=== PATIENT | female | born 1950 | race Hispanic/Latino ===

== ENCOUNTER 2018-09-29 17:03 | Emergency (ER) | payer MEDICARE ==
[2018-09-29] MEDS ORDERED: Morphine 4 MG/ML VIAL ONE (17:35)
[2018-09-29] MEDS ORDERED: HYDROcodone/Acetaminophen 5/325 mg Tablet ONE (18:19)
== END 2018-09-29 18:15 | disposition home or self-care (01) ==
LOC: MADERS 17:03
DX: G89.29 Other chronic pain (principal); M54.5 Low back pain
CPT/HCPCS: 96372; J2270

== ENCOUNTER 2019-11-07 05:58 | Emergency (ER) | payer MEDICARE ==
[2019-11-07] MEDS ORDERED: Morphine 4 MG/ML VIAL ONE (06:14)
[2019-11-07] MEDS ORDERED: Ketorolac Tromethamine 30 MG/ML VIAL ONE (06:15)
[2019-11-07 06:56] LABS: Hemoglobin 13.4 g/dL (12.0-16.0); Mean Corpuscular HGB CONC 30.8 g/dL (32.0-36.0); Mean Corpuscular Hemoglobin 33.2 pg (27.0-31.0); Mean Corpuscular Volume 107.6 fL (78.0-98.0); Mean Platelet Volume 9.3 fL (7.4-10.4); Platelet Count 401 thou/uL (130-400); RBC Distribution Width 12.3 % (11.5-14.5); Red Blood Cell (RBC) Count 4.03 mill/uL (4.20-5.40); White Blood Cell (WBC) Count 9.9 thou/uL (4.8-10.8)
[2019-11-07 06:57] LABS: Bilirubin Negative (Negative); Blood, Urine Small (Negative); Clarity Clear (Clear); Glucose, Urine (Dipstick) Negative (Negative); Ketone, Urine Negative (Negative); Leukocyte Negative (Negative); Nitrite Negative (Negative); Protein, Urine (Dipstick) Negative (Neg-Trace); Specific Gravity, Urine 1.025 (1.005-1.030); Urobilinogen 0.2 mg/dL (Less than 2); pH, Urine 6.5 (5.0-9.0)
[2019-11-07 07:04] LABS: Bacteria/HPF Rare-Few HPF (None Seen); Mucous/LPF None Seen LPF (<2+); Squamous Epithelial 0-3 HPF (0-3); WBC/HPF 0-3 HPF (0-3)
[2019-11-07 07:06] LABS: #Basophils 0.1 thou/uL (0.0-0.2); #Eosinphils 0.3 thou/uL (0.0-0.7); #Lymphocytes 2.2 thou/uL (1.20-3.40); #Monocytes 0.5 thou/uL (0.11-0.59); #Neutrophils 6.7 thou/uL (1.40-6.50); %Basophils 1.2 % (0.0-1.0); %Eosinophils 2.6 % (0.0-10.0); %Lymphocytes 22.7 % (21.0-51.0); %Monocytes 5.1 % (0.0-10.0); %Neutrophils 68.3 % (42.0-75.0); MDiff Complete? YES; Macrocytosis SLIGHT = 6-15 cells (100X) (0-5/hpf); Platelet Morphology Comment Appears Adequate; Stomatocytes SLIGHT = 2-5 cells (100X) (0-1/hpf)
[2019-11-07 07:13] LABS: ALT (SGPT) 11 U/L (8-55); AST (SGOT) 18 U/L (5-34); Albumin 4.1 g/dL (3.4-4.8); Alkaline Phosphatase 70 U/L (40-110); Anion Gap 12 mmol/L (10-20); BUN (Urea Nitrogen) 23 mg/dL (9.8-20.1); Bilirubin, Total 0.2 mg/dL (0.2-1.2); Calc. Creatinine Clearance 0 mL/min (70-130); Calcium 8.9 mg/dL (7.8-10.44); Carbon Dioxide 28 mmol/L (23-31); Chloride 106 mmol/L (98-107); Estimated GFR-MDRD 84; Globulin 3.2 g/dL (2.4-3.5); Glucose 93 mg/dL (80-115); Lipase 73 U/L (8-78); Potassium 3.3 mmol/L (3.5-5.1); Protein, Total 7.3 g/dL (6.0-8.3); Sodium 143 mmol/L (136-145)
--- NOTE | 2019-11-07 09:08 | CT ---
PRELIMINARY REPORT/[facility]/AFTER HOURS PROCEDURE CT ABDOMEN AND PELVIS WITHOUT INTRAVENOUS CONTRAST: CLINICAL HISTORY: Back pain. TECHNIQUE: Axial computed tomography images of the abdomen and pelvis without intravenous contrast. CONTRAST: None. COMPARISON: None provided. FINDINGS: LUNG BASES: No basilar airspace consolidation or pleural effusion. LIVER: Unremarkable. GALLBLADDER AND BILE DUCTS: Cholecystectomy with CBD dilation. PANCREAS: Unremarkable. SPLEEN: Unremarkable. ADRENAL GLANDS: Unremarkable. KIDNEYS, URETERS, AND BLADDER: Simple cyst right kidney. No hydronephrosis or nephrolithiasis. No ure teral or bladder calculi. STOMACH AND BOWEL: Limited assessment. PERITONEUM: No free fluid. No free air. LYMPH NODES: Limited assessment. REPRODUCTIVE: Unremarkable as visualized. VASCULATURE: No aortic aneurysm. Diffuse calcified aortic plaque. ABDOMINAL WALL AND SOFT TISSUES: Unremarkable. BONES: Severe lumbar facet arthropathy. Mild anterolisthesis of L4 on L5, and possible right-sided L 4 pars defect. Scoliosis. IMPRESSION: 1. Limited study due to paucity of intra-abdominal fat and lack of IV/oral contrast. Patient is cach ectic. There is a simple cyst in the right kidney. The gallbladder is surgically absent. There is e xtreme calcified arteriosclerosis. 2. Severe lumbar facet arthropathy. Mild anterolisthesis of L4 on L5, and possible right-sided L4 pa rs defect. Scoliosis. ELECTRONICALLY SIGNED BY: Bakari Trejo MD Nov 07, 2019 7:20:59 AM CDT This report is intended for review by the ordering physician only, in accordance of law. If you recei ve this report in error, please call [facility] at [phone]. FINAL REPORT EMERGENT AFTER HOURS CT ABDOMEN AND PELVIS WITHOUT IV CONTRAST: 11/07/19 6:23 a.m. FINDINGS: The exam is severely limited, in part because of very little intraabdominal and retroperitoneal fat a nd it is also limited with the lack of IV and oral contrast. Status post cholecystectomy. Evidence fo r a right renal cyst and a possible small fatty mass, such as an angiomyolipoma at the lateral aspect of the right mid kidney. Retroperitoneum is very poorly seen. The possibility of adenopathy certainl y cannot be excluded. Lumbar spine scoliosis. Spondylosis with some grade 1 spondylolisthesis of L4 a nd L5 with multilevel stenosis. Significantly limited exam. Consideration for a non-emergent follow-up study of the abdomen and pelvi s with IV and oral contrast should be considered for further evaluation. CODE T
== END 2019-11-07 07:45 | disposition home or self-care (01) ==
LOC: MADERS 05:58
DX: M54.5 Low back pain (principal); F17.210 Nicotine dependence, cigarettes, uncomplicated
CPT/HCPCS: 74176; 80053; 81003; 81015; 83690; 85025; 96374; 96375; J1885; J2270

== ENCOUNTER 2020-11-22 21:50 | Emergency (ER) | payer MEDICARE ==
[2020-11-22] MEDS ORDERED: Sodium Chloride 0.9% 500 ML ONE (22:21)
[2020-11-22 22:40] LABS: Hemoglobin 14.3 g/dL (12.0-16.0); Mean Corpuscular HGB CONC 31.5 g/dL (32.0-36.0); Mean Corpuscular Hemoglobin 33.6 pg (27.0-31.0); Mean Corpuscular Volume 106.6 fL (78.0-98.0); Mean Platelet Volume 7.2 fL (7.4-10.4); Platelet Count 419 thou/uL (130-400); RBC Distribution Width 13.3 % (11.5-14.5); Red Blood Cell (RBC) Count 4.25 mill/uL (4.20-5.40); White Blood Cell (WBC) Count 14.8 thou/uL (4.8-10.8)
[2020-11-22 22:57] LABS: Bacteria/HPF Rare-Few HPF (None Seen); Squamous Epithelial 0-3 HPF (0-3); WBC/HPF 0-3 HPF (0-3)
[2020-11-22 22:58] LABS: ALT (SGPT) 18 U/L (8-55); AST (SGOT) 16 U/L (5-34); Alkaline Phosphatase 65 U/L (40-110); Anion Gap 14 mmol/L (10-20); BUN (Urea Nitrogen) 12 mg/dL (9.8-20.1); Bilirubin, Total 0.5 mg/dL (0.2-1.2); CK (CPK) 46 U/L (29-168); Calc. Creatinine Clearance 0 mL/min (70-130); Calcium 8.8 mg/dL (7.8-10.44); Carbon Dioxide 22 mmol/L (23-31); Chloride 108 mmol/L (98-107); Globulin 2.9 g/dL (2.4-3.5); Glucose 128 mg/dL (83-110); Lipase 17 U/L (8-78); Potassium 3.6 mmol/L (3.5-5.1); Protein, Total 6.9 g/dL (5.8-8.1); Sodium 140 mmol/L (136-145)
[2020-11-22 22:58] LABS: Mucous/LPF 1+ LPF (<2+)
[2020-11-22 22:59] LABS: #Lymphocytes 0.2 thou/uL (1.20-3.40); #Monocytes 0.2 thou/uL (0.11-0.59); #Neutrophils 14.4 thou/uL (1.40-6.50); %Basophils 0.1 % (0.0-1.0); %Eosinophils 0.1 % (0.0-10.0); %Lymphocytes 1.6 % (21.0-51.0); %Monocytes 1.1 % (0.0-10.0); %Neutrophils 97.2 % (42.0-75.0); Platelet Morphology Comment Appears Adequate; RBC Morphology Normal
[2020-11-23] MEDS ORDERED: Ketorolac Tromethamine 30 MG/ML VIAL ONE (00:07)
== END 2020-11-23 00:25 | disposition home or self-care (01) ==
LOC: MADERS 21:50
DX: R33.9 Retention of urine, unspecified (principal); F17.210 Nicotine dependence, cigarettes, uncomplicated; C71.9 Malignant neoplasm of brain, unspecified; Z79.899 Other long term (current) drug therapy
CPT/HCPCS: 36415; 51701; 74176; 80053; 81015; 82550; 83605; 83690; 85025; 87040; 87086; 93005; 96374; J1885; J7030

== ENCOUNTER 2020-12-19 07:24 | Emergency (ER) | payer MEDICARE ==
[2020-12-19] MEDS ORDERED: Sodium Chloride 0.9% 1,000 ML ONE (08:38)
[2020-12-19] MEDS ORDERED: Ondansetron PF 4 MG/2 ML Vial ONE (08:38)
[2020-12-19 09:41] LABS: Bilirubin Moderate (Negative); Blood, Urine Large (Negative); Clarity Cloudy (Clear); Glucose, Urine (Dipstick) Negative (Negative); Ketone, Urine Trace mg/dL (Negative); Leukocyte Trace (Negative); Nitrite Positive (Negative); Protein, Urine (Dipstick) > or equal to 300 mg/dL (Neg-Trace); Specific Gravity, Urine 1.025 (1.005-1.030)
[2020-12-19 09:50] LABS: RBC/HPF Greater than 50 HPF (0-3); Squamous Epithelial None Seen HPF (0-3)
[2020-12-19 09:51] LABS: Bacteria/HPF 2+ HPF (None Seen); Yeast-Budding 1+ HPF (None Seen); Yeast-Hyphae Rare HPF (None Seen)
[2020-12-19 09:57] LABS: Hemoglobin 15.3 g/dL (12.0-16.0); Mean Corpuscular HGB CONC 31.3 g/dL (32.0-36.0); Mean Corpuscular Hemoglobin 33.9 pg (27.0-31.0); Mean Corpuscular Volume 108.1 fL (78.0-98.0); Mean Platelet Volume 6.7 fL (7.4-10.4); Platelet Count 815 thou/uL (130-400); Red Blood Cell (RBC) Count 4.51 mill/uL (4.20-5.40); White Blood Cell (WBC) Count 30.7 thou/uL (4.8-10.8)
[2020-12-19] MEDS ORDERED: cefTRIAXone\\ROCEPHIN 2 GM VIAL ONE (10:02)
[2020-12-19] MEDS ORDERED: Dextrose 5% in Water 250 ML ONE (10:02)
[2020-12-19] MEDS ORDERED: Sodium Chloride 0.9% 100 ML ONE ×2 (10:02→12:59)
[2020-12-19 10:07] LABS: ALT (SGPT) 39 U/L (8-55); AST (SGOT) 22 U/L (5-34); Albumin 3.3 g/dL (3.4-4.8); Alkaline Phosphatase 73 U/L (40-110); Anion Gap 13 mmol/L (10-20); BUN (Urea Nitrogen) 25 mg/dL (9.8-20.1); Bilirubin, Total 0.8 mg/dL (0.2-1.2); Calc. Creatinine Clearance 0 mL/min (70-130); Calcium 8.7 mg/dL (7.8-10.44); Carbon Dioxide 24 mmol/L (23-31); Chloride 101 mmol/L (98-107); Globulin 2.8 g/dL (2.4-3.5); Glucose 134 mg/dL (83-110); Potassium 3.1 mmol/L (3.5-5.1); Protein, Total 6.1 g/dL (5.8-8.1); Sodium 135 mmol/L (136-145)
[2020-12-19 10:13] LABS: CRP (Inflammatory) 3.95 mg/dL (= or < 0.5)
[2020-12-19 10:24] LABS: Band 2 % (5-11); MDiff Complete? YES; Neutrophil 94 % (42-75)
[2020-12-19 10:25] LABS: Lymphocytes 1 % (21-51); Monocytes 3 % (0-10)
[2020-12-19 10:26] LABS: Anisocytosis SLIGHT = 6-15 cells (100X) (0-5/hpf); Macrocytosis SLIGHT = 6-15 cells (100X) (0-5/hpf); Platelet Morphology Comment Appears Increased; RBC Morphology Normal
[2020-12-19] MEDS ORDERED: Morphine 2 MG/ML VIAL ONE (10:26)
[2020-12-19] MEDS ORDERED: Pantoprazole 40 MG VIAL ONE (10:47)
[2020-12-19] MEDS ORDERED: Piperacillin/Tazobactam 4.5 GM VIAL ONE (12:59)
== END 2020-12-19 14:13 | disposition short-term general hospital (02) ==
LOC: MADERS 07:24
DX: K65.0 Generalized (acute) peritonitis (principal); K85.90 Acute pancreatitis without necrosis or infection, unspecified; N39.0 Urinary tract infection, site not specified; C71.9 Malignant neoplasm of brain, unspecified; F17.210 Nicotine dependence, cigarettes, uncomplicated
CPT/HCPCS: 71045; 74176; 80053; 82150; 82550; 83605; 83690; 84484; 85025; 86140; 87040; 87077; 87086; 87186; 94760; J2270; 36415; 81003; 81015; 96365; 96366; 96367; 96375; C9113; J0696; J2405; J2543; J3370; J3490; J7050; J7070